=== PATIENT | female | born 1990 | race Caucasian/White ===

== ENCOUNTER 2023-10-24 18:40 | Emergency (ER) | payer BC, SELFPAY ==
[2023-10-24 18:41] VITALS: BP 147/87
--- NOTE | 2023-10-24 19:14 | ED.GENMED ---
History of Present Illness
General
Chief Complaint: Musculo-Skeletal Complaint
Time Seen by Provider: 10/24/23 18:57
Travel History
Have you had any contact with someone who has COVID-19?: No
Do you have any symptoms of coronavirus? Fever > 100 degrees, chills, cough, shortness of breath, sore throat, loss of taste or smell, muscle aches, or headache?: No
History of Present Illness
History of Present Illness:
HPI: The patient fell on an uneven patio 2 days ago. She has been having increasing pain and discomfort along with swelling to the lateral aspect of the left ankle. She also notes some bruising at the lateral aspect of the left hindfoot. She
denies any other injury
EXAM:
GENERAL: Well appearing in no distress
CERVICAL SPINE: No midline c-spine tenderness with excellent AROM
HEAD: No evidence of craniofacial trauma
CHEST: No chest wall tenderness
LUNGS: No respiratory distress
ABDOMEN: No abdominal tenderness, no peritoneal signs
EXTREMITIES: Slightly decreased active range of motion at the left ankle due to pain, some ecchymosis noted to the lateral aspect of the left, minimal soft tissue swelling over the left anterior talofibular ligament, no significant bony tenderness
at the left lateral malleolus, there is no evidence of Achilles tendon rupture
NEURO: Excellent strength all extremities, appropriate mental status, normal speech/language
TIME OF INITIAL ENCOUNTER: 7:10 PM
NUMBER AND COMPLEXITY OF PROBLEMS ADDRESSED AT THE ENCOUNTER
� Chronic conditions affecting care: Has had removal of an ovarian cyst otherwise no significant past medical history
� Acute Exacerbation and/or Progression of Chronic Illness: This is an acute problem
� Differential Diagnosis includes: Ankle sprain, ankle fracture, foot fracture, foot sprain, Achilles tendon rupture
AMOUNT AND/OR COMPLEXITY OF DATA TO BE REVIEWED AND ANALYZED
� I performed an independent evaluation of and my interpretation is:
EKG:
CT:
X-rays: I personally viewed x-ray of the left ankle and see no abnormality.
Laboratory Studies:
Other:
� Review of other/old records: I reviewed records�patient had vaginal delivery in 2019 and ovarian cyst removal in 2011
� Clinical information was obtained by an independent historian: Spoke to sister
� Prescriptions/Medications Considered but not given:
� Further testing considered but not performed:
RISK OF COMPLICATIONS AND/OR MORBIDITY OR MORTALITY OF PATIENT MANAGEMENT
� Social determinants of health affecting care: Lives at home
� Discussion with other providers:
� Escalation of care including admission/observation vs risk of discharge considered: I personally viewed x-rays and examined the patient and feel that the symptoms are related to ankle sprain. Recommend NSAIDs and she is to
follow-up with Ortho if symptoms persist. Placed her in an air stirrup splint.
Past History
Past History
ED Past Medical History: None
ED Past Surgical History: None
Social History
Tobacco: Non-smoker
Alcohol: Occasional
Drug: None
Personal: Single
Living: with family
Phy Exam
Physical Exam
Physical Exam:
See HPI
Course
Orders/Labs/Results
Orders:
Orders
10/24/23 18:43
Ankle, left 3 view CR [CR Ankle - Left Min 3 Views ] Urgent
Comment:
Reason For Exam: tripped down step on tuesday ankle pain/swelling
10/24/23 19:14
Air Splint Left-Treatment ONCE
Vital Signs
Initial and Last Documented VS:
Initial Vital Signs
Temp Pulse Resp BP Pulse Ox
99.9 F 96 16 147/87 96
10/24/23 18:41 10/24/23 18:41 10/24/23 18:41 10/24/23 18:41 10/24/23 18:41
Last Documented Vital Signs
Temp Pulse Resp BP Pulse Ox
99.9 F 96 16 147/87 96
10/24/23 18:41 10/24/23 18:41 10/24/23 18:41 10/24/23 18:41 10/24/23 18:41
*Critical Care Note
Total Time (30-74mins, 75-104mins- exclusive of procedures): Not Applicable
ED Attending Note
-
Portions of this chart may have been created with voice recognition software.� Occasional wrong word or��sound alike� substitutions may have occurred due to the inherent limitations of voice recognition software.
Discharge Plan
Departure
Patient Disposition: Home (Routine Discharge)
Date of Disposition: 10/24/23
Time of Disposition: 19:12
Patient with high blood pressure during this ER visit?: Yes
Discharge Problem:
Ankle sprain
Instructions: Sprain (DC)
Prescriptions:
No Action
acetaminophen 325 MG tablet
650 mg PO Q4HPRN PRN (Reason: mild pain) 0RF
ibuprofen 600 MG tablet
600 mg PO Q4HPRN PRN (Reason: moderate pain/cramps) 0RF
prednisone 10 MG tablet
10 mg PO .TAPER Qty: 30 0RF
Rx Instructions:
Take 40mg daily x3days, 30mg daily x3days,
20mg daily x3days, 10mg daily x3days.
Referrals:
Lenny Dalton MD [Active] - Follow up in 2-3 days
Beatriz Nguyễn, [Family Provider] -
Activity Restrictions/Additional Instructions:
Please follow-up with orthopedics if symptoms persist. I have given you the contact information for Dr. Dalton. I recommend 3-4 [id number]-[id number] ibuprofen (Motrin) every 8 hours with food for a few days. Return here if worse.
Interventions
Interventions:
*ED COVID-19 Vaccine History Last Done: 10/24/23 18:41
Discharge Date and Time
Print Language: MALAY
== END 2023-10-24 20:09 | disposition home or self-care (01) ==
LOC: EMR 18:40
PROVIDERS: EMERGENCY PHYSICIAN Emergency Medicine; FAMILY PHYSICIAN Family Medicine
DX: S93.402A Sprain of unspecified ligament of left ankle, initial encounter (principal); S90.32XA Contusion of left foot, initial encounter; W17.89XA Other fall from one level to another, initial encounter
CPT/HCPCS: 99283; 29515; 73610